=== PATIENT | female | born 1990 | race Caucasian/White ===

== ENCOUNTER 2023-05-08 10:05 | Emergency (ER) | payer OTHER ==
[~2023-05-08] VITALS: Ht 172.7 cm; Wt 113.4 kg
[2023-05-08] MEDS ORDERED: DIPHTH,PERTUSS(ACELL),TET VAC 0.5 ML VIAL (Tdap) I.M. ONE (10:15)
[2023-05-08] MEDS ORDERED: LIDOCAINE 1% 10 MG/ML, 20 ML MDV INJ ONE (10:15)
[2023-05-08] MEDS ORDERED: BACITRACIN 1 GM OINT TP ONE (10:15)
[2023-05-08 10:22] VITALS: BP_SYST 128
--- NOTE | 2023-05-08 10:32 | NUR ---
MOVED TO BED 2 FROM . PREP FOR WOUND CLOSURE BY DR. DE LEON.
--- NOTE | 2023-05-08 10:45 | NUR ---
Patient arrived for c/o laceration of hand after gardening. Able to respond as appropriate.
[2023-05-08 11:19] VITALS: BP_SYST 120
== END 2023-05-08 11:19 | disposition home or self-care (01) ==
LOC: SED 10:05
DX: S61.412A Laceration without foreign body of left hand, initial encounter (principal); Z79.899 Other long term (current) drug therapy; W26.8XXA Contact with other sharp object(s), not elsewhere classified, initial encounter; Y93.H2 Activity, gardening and landscaping; Y92.89 Other specified places as the place of occurrence of the external cause; Y99.8 Other external cause status
CPT/HCPCS: 99283; 12004; J2001